=== PATIENT | female | born 1960 | race African-American/Black ===

== ENCOUNTER → 2019-05-30 | Outpatient (CLI) | payer OTHER ==
[~2019-05-30] MED LIST: ALLEGRA-D 24 H1 EACH PO; ASA81BEC PO; CARAFATE 1 GM TA1 GM PO; CELEBREX 200 M200 M1 PO; COD LIVER OIL1 EAC4 PO; COLACE100 MG PO; FLONASE 0.05%50 MCG NARES; FOLIC ACID1 MG PO; FUROSEMIDE 20 M20 MG PO; GARLIC1 EACH PO; INVOKANA300 MG PO; IRON325 M1 PO; KLOR-CON 10 ER10 MEQ PO; LANTUS SUBQ; LYRICA150 MG PO; METHOTREXATE 22.5 M1 PO; NORVASC10 MG PO; NOVOLOG100 UNIT/M SUBQ; PLAQUENIL200 MG PO; POTASSIUM20 PO; PRAVACHOL40 MG PO; PROAIR HFA8.5 GM INH; REMICADE 1100 MG/VIA IV; SYMBICORT160 MCG/4. INH; VICODIN 5-3001 EACH PO; ZESTRIL20 MG PO
== END ==
LOC: MRI 11:01 → EDSTATUS 11:19 → MRI 12:17
DX: M47.26 Other spondylosis with radiculopathy, lumbar region (principal); M43.16 Spondylolisthesis, lumbar region; M51.16 Intervertebral disc disorders with radiculopathy, lumbar region; M48.062 Spinal stenosis, lumbar region with neurogenic claudication

== ENCOUNTER → 2019-06-16 | Outpatient (CLI) | payer OTHER ==
[~2019-06-16] VITALS: Ht 152.4 cm; Wt 132.4 kg
[2019-06-16 10:46] VITALS: BP 146/85
--- NOTE | 2019-06-30 08:25 | HPC ---
[facility] [address] [place] [address] PAIN MANAGEMENT CONSULTATION Name: ANU WEEMS Room #: REG SARTHAK ClementRyderPennyRyder#: [id number] Admission: 06/16/19 Attend Phys: Theron Pressley MD Discharge: Date of : 60 Report #: [id number] THIS REPORT FOR: //name// CC: FAM xiomara Pressley DATE OF SERVICE: 06/16/2019 HISTORY: The patient is a 59-year-old female who has been referred to the pain clinic for evaluation of back pain. She has a history of back pain dating back greater than 20 years. She underwent an epidural steroid injection about 15 years ago and noted some improvement. She has been experiencing pain in the lower portion of her back that is in the area near the center of her back. It involves both sides. Notes that activities of daily living exacerbate her discomfort. Notes that her pain is worse when she sits for too long, stands for too long, walks for a prolonged period of time. Notes that when getting out of bed, she feels as though she is "paralyzed in the morning." She has undergone physical therapy and found that this has been helpful. Use of nonsteroidal anti-inflammatory medications provide some benefit. She has used muscle relaxants. Biofreeze has been helpful. She has used Vicodin. She describes her discomfort as steady, shooting, aching, sharp and tender. Rates it as a 10/10 today. She has a history of rheumatological problems. She has undergone treatment with Remicade. Has used steroids. States that she has been told that she might have a slipped disk. ALLERGIES: SULFADIAZINE. CURRENT MEDICATIONS: Aspirin 81 mg, garlic 1250 mg, cod liver oil, Sujata-D, Lyrica 150 mg b.i.d., Symbicort 160/4.5 two puffs b.i.d., Remicade infusions 100 mg q. 8 weeks, K-Dur 20 mEq, iron supplementation 325 mg, stool softener 100 mg, Albuterol 2 puffs, pravastatin 40 mg, Vicodin 5/500 mg q. 6 hours p.r.n., Norvasc 10 mg, methotrexate 2.5 mg once weekly, Lasix 20 mg b.i.d., folic acid 1 mg, potassium 10 mEq b.i.d., sucralfate, lisinopril 20 mg, Celebrex 200 mg b.i.d., Lantus 100 units, 46 units subcutaneous at bedtime, Flonase, NovoLog sliding scale, Invokana 300 mg, Plaquenil 200 mg. PAST MEDICAL HISTORY: Diabetes, hypertension, joint disease/arthritis. PAST SURGICAL HISTORY: Partial hysterectomy in 1995, right knee scope 2005, hemorrhoidectomy in 1988. SOCIAL HISTORY: The patient is disabled, has not worked since 2005. She is receiving disability benefits. REVIEW OF SYSTEMS: The patient wears glasses, chronic sinus problems, shortness [address] [address] PAIN MANAGEMENT CONSULTATION Name: ANU WEEMS Room #: REG LUDAZaria Petit#: [id number] Admission: 06/16/19 Attend Phys: Theron Pressley MD Discharge: Date of : 60 Report #: [id number] of breath while lying flat or walking, asthma, hot and cold intolerance. LABORATORY DATA: 1. MRI of the lumbar spine dated 05/30/2019, L4-L5 broad-based posterior disk bulge, bilateral facet hypertrophy and ligamentum flavum hypertrophy resulting in mild central canal stenosis and mild bilateral neural foraminal narrowing. 2. L5-S1 bilateral facet hypertrophy, no significant central canal stenosis or neural foraminal narrowing. 3. Degenerative changes are noted. PAIN CLINIC ASSESSMENT AND PQRS: 1. Height 5 feet 0 inches, weight 291 pounds, BMI 57.0. 2. Osteoarthritis. The patient has had scoping of her right knee. 3. Rheumatoid arthritis. The patient is being followed by her stoper and receiving infusions. 4. Vital Signs: Blood pressure 146/85, pulse 100, respiratory rate 18, room air saturation is 99%. 5. Pain intensity 10/10. 6. Fall history: The patient has not fallen in the last 3 months. 7. Blood thinner. The patient is not on a blood thinning medication. 8. Hypertension. The patient is being treated for hypertension. 9. Opioid medications. The patient receives medications from one source, the patient with low probability for opioid use. 10. Pain impact score 54/70. 11. Alcohol. The patient denies more than occasional alcohol use. 12. Tobacco: The patient denies use of tobacco. PHYSICAL EXAMINATION: GENERAL: The patient is a well-developed, well-nourished black female. She is obese. She is alert and oriented x 3. Her affect is appropriate. Speech is fluent. HEENT: Normocephalic, atraumatic. Extraocular eye muscles intact. Sclerae nonicteric. Mucous membranes are moist. NECK: Without adenopathy or JVD. EXTREMITIES: Upper extremity muscle strength judged to be 5/5 for the major muscle groups in the upper extremity. HEART: Regular rate. ABDOMEN: Protuberant. Bowel sounds present. The patient without adenopathy or JVD. MUSCULOSKELETAL: Without significant scoliosis, kyphosis or lordosis. The patient complains of pain and discomfort in the low back area with pain radiating down into the low back and buttocks area in the L5-S1 dermatomal distribution as well as some pain and discomfort in the L4-L5 dermatomal distribution. Straight leg raise is positive. IMPRESSION: [facility] [address] [place] [address] PAIN MANAGEMENT CONSULTATION Name: ANU WEEMS [facility] [id number] Admission: 06/16/19 Attend Phys: Theron Pressley MD Discharge: Date of : 60 Report #: [id number] 1. Lumbar radiculopathy, L5-S1 dermatomal distribution with numbness, tingling and sensory changes in the posterior portion of the buttocks with radiation down into in the L5-S1 dermatomal distribution bilaterally. 2. Diabetes. 3. Hypertension. 4. Joint disease/arthritis. RECOMMENDATIONS: We discussed treatment options with the patient. At this juncture, we will consider an epidural steroid injection. The patient did have epidural steroid injections in the past. She found that they were beneficial. She will return to the Pain Clinic, at which time she will then undergo an epidural steroid injection. Risks and benefits of the procedure were discussed. The patient's MRI was reviewed with her in detail. A review of the MRI using the images on the screen were discussed. A model was used to indicate the area of probable pathology. The patient states that she understands. We would like to thank you for letting us participate in her care. We hope she will continue to improve after the epidural injections. <ELECTRONICALLY SIGNED> By: Theron Pressley MD 06/30/19 0825 [id number] Theron Pressley MD /[facility]
== END ==
LOC: PAIN 07:09
DX: M54.17 Radiculopathy, lumbosacral region (principal); E11.9 Type 2 diabetes mellitus without complications; I10 Essential (primary) hypertension; M19.90 Unspecified osteoarthritis, unspecified site

== ENCOUNTER → 2019-10-25 | Outpatient (CLI) | payer OTHER ==
[~2019-10-25] VITALS: Ht 152.4 cm; Wt 129.3 kg
[~2019-10-25] MED LIST changes: +NORCO 10-325 T1 EACH PO
[2019-10-25 10:55] VITALS: BP 150/77
--- NOTE | 2019-10-25 11:11 | NUR ---
Pain Clinic Assessment: 1. History of Osteoarthritis: BACK BILAT KNEES History of Rheumatoid Arthritis: HANDS SHOULDERS KNEES 2. Height: 5 ft. 0 in. 152.4 cm. Weight: 285.0 lb. oz. 129.276 kg. Patient's BMI: 55.7 3. Vital Signs: BP: 150/77 Pulse: 97 Resp: 18 Temp: 02 Sat: 100 ECG Mon: 4. Pain Intensity: 10 5. Fall Risk: Dizziness: N Needs help standing or walking: N Fallen in the last 3 months: N Fall risk comments: 6. Patient on Blood Thinner: None 7. History of Hypertension: Y 8. Opioid Therapy greater than 6 weeks: N Opiate Contract Signed: 9. Risk Assessment Tool Provided: LOW RISK 0/3 10. Functional Assessment Tool: 54/70 11. Recreational Drug Use: Never Drug Type: Tobacco Use: Never Smoker Tobacco Type: Amount or Packs/day: How Many Years: Alcohol Use: No Frequency: Quant:
--- NOTE | 2019-10-30 22:53 | HPC ---
[facility] [place] [address] PAIN MANAGEMENT CONSULTATION Name: ANU WEEMS Room #: REG SARTHAK Petit#: [id number] Admission: 10/25/19 Attend Phys: Theron Pressley MD Discharge: Date of : 60 Report #: [id number] THIS REPORT FOR: cc: SARAH - Family physician unknown SARAH - Family physician unknown Theron Pressley MD ~ CC: SARAH Pressley DATE OF SERVICE: 10/25/2019 CHIEF COMPLAINT: Pain in the back and down in the right leg. Left leg is worse. HISTORY: The patient is a 59-year-old female who has been seen in the Pain Clinic in the past because of lumbar radicular pain. She continues to have pain, which has been quite debilitating. Rates her pain as a 10/10 today. It involves her low back. It radiates down the left buttocks area. She did note pain that radiates down into the posterior portion of her leg with numbness and tingling. Denies any new bowel or bladder problems. Overall, she feels that the pain is problematic. She was taking Celebrex. She had noted an increase in the creatinine level. She states that her primary physician asked that she stop taking this medication on a regular basis. She has noted an increase in her pain since she has had to stop the nonsteroidal anti-inflammatory medication. Does have a history of diabetes. Overall, she feels her blood sugars are reasonably stable. She has undergone Remicade treatment. She has been told that she has a slipped disk. She has returned today to the Pain Clinic with the thought of undergoing an epidural steroid injection and hopes that the pain will improve after the injection. ALLERGIES: SULFADIAZINE. CURRENT MEDICATIONS: Aspirin 81 mg, garlic 250 mg, cod liver oil, Sujata-D, Lyrica 150 mg b.i.d., Symbicort 160/4.5 two puffs, Remicade infusions 100 mg q. 8 weeks, K-Dur 20 mEq, iron supplements 325 mg, stool softener 100 mg, albuterol puffs 2, pravastatin 40 mg, Vicodin 5/500, Norvasc 10 mg, methotrexate 2.5 mg once weekly, Lasix 20 mg b.i.d., folic acid 1 mg, potassium 10 mEq b.i.d., sucralfate, lisinopril 20 mg, Lantus 100 units subQ as directed, Flonase, NovoLog sliding scale, Invokana 300 mg, Plaquenil 200 mg. The patient has stopped taking Celebrex. PAIN CLINIC ASSESSMENT/PQRS: 1. History of osteoarthritis and back pain. Has bilateral knee pain. 2. History of rheumatoid arthritis involving the hand, shoulder and knees. 3. Height 5 feet 0, weight 285 pounds, BMI is 55. 4. Vital signs: Blood pressure 150/77, pulse 97, respiratory rate 18, [place] [address] PAIN MANAGEMENT CONSULTATION Name: ANU WEEMS Room #: REG Zaria Marques.#: [id number] Admission: 10/25/19 Attend Phys: Theron Pressley MD Discharge: Date of : 60 Report #: [id number] air saturation 100%. 5. Pain intensity, 06/01. 6. Fall history: The patient has not fallen in the last 3 months. 7. Blood thinner. The patient is not on a blood thinning medication. 8. Hypertension. The patient is being treated for hypertension. 9. Opioids greater than 6 weeks. The patient's hydrocodone is provided by her primary physician. 10. Functional assessment tool, low for opioid use. 11. Functional assessment tool, 54/70. 12. Recreational drug use: The patient denies. 13. Tobacco: The patient has never smoked. 14. Alcohol. The patient denies use of alcoholic beverages. PHYSICAL EXAMINATION: GENERAL: The patient is a well-developed, well-nourished black female, appears her stated age. She is obese. Her affect is appropriate. Speech is fluent. HEENT: Normocephalic, atraumatic. Extraocular eye muscles intact. Sclerae nonicteric. Mucous membranes are moist. NECK: Without adenopathy or JVD. EXTREMITIES: Upper extremity muscle strength judged to be 5/5 for the major muscle groups in the upper extremity. HEART: Regular. ABDOMEN: Protuberant. Bowel sounds present. The patient is without adenopathy or JVD. MUSCULOSKELETAL: The patient without significant scoliosis, kyphosis or lordosis. The patient has pain and discomfort in lower portion of her back. Has pain that radiates down in the L5-S1 dermatomal distribution in the left and right leg. The pain is more problematic on the left. It involves the buttocks and down into the posterior portion of her leg. Positive straight leg raise. IMPRESSION: 1. Lumbar radiculopathy at L5-S1 dermatomal distribution with numbness, tingling and sensory changes. 2. Diabetes. 3. Hypertension. 4. Joint disease/arthritis. 5. Rheumatoid arthritis. RECOMMENDATIONS: We discussed treatment options with the patient. Risks and benefits of an epidural steroid injection were discussed. Possible complications of the procedure were reviewed. They include but are not limited to infection, worsening pain, no improvement in pain, nerve damage, spinal headache and the patient elects to proceed. PROCEDURE NOTE: The patient was taken to the procedure area. She was then assisted in getting on the examination table. Her back was sterilely prepped [facility] [address] [place] [address] PAIN MANAGEMENT CONSULTATION Name: ANU WEEMS Room #: REG [facility].#: [id number] Admission: 10/25/19 Attend Phys: Theron Pressley MD Discharge: Date of : 60 Report #: [id number] with a Betadine solution. Fluoroscopy using anterior, posterior as well as lateral viewing were implemented. A 0.25% bupivacaine was infiltrated to numb the pathway. A 17-gauge Tuohy with loss of resistance technique was then used in a midline approach at L5-S1. This was directed to the left side. There was no CSF, heme or paresthesia. Total of 80 mg Depo-Medrol, 40 mg triamcinolone and 2 mL of 0.25% bupivacaine was injected. The patient tolerated the procedure well. We reminded the patient that her blood sugars might increase as a result of the use of steroids. She will monitor blood sugars and treated with insulin as needed. We would like to thank you for letting us participate in her care. We hope she continues to improve. <ELECTRONICALLY SIGNED> By: Theron Pressley MD 10/30/19 2253 [id number] Theron Pressley MD /nt
== END | disposition home or self-care (01) ==
LOC: PAIN 06:53
DX: M54.16 Radiculopathy, lumbar region (principal); G89.29 Other chronic pain; I10 Essential (primary) hypertension; E11.9 Type 2 diabetes mellitus without complications; M19.90 Unspecified osteoarthritis, unspecified site; M06.9 Rheumatoid arthritis, unspecified; Z98.890 Other specified postprocedural states; Z79.899 Other long term (current) drug therapy; Z79.891 Long term (current) use of opiate analgesic; Z88.2 Allergy status to sulfonamides; Z79.82 Long term (current) use of aspirin

== ENCOUNTER → 2019-12-01 | Outpatient (CLI) | payer OTHER ==
[~2019-12-01] VITALS: Ht 154.9 cm; Wt 131.5 kg
[~2019-12-01] MED LIST changes: +FLEXERIL PO; +LYRICA 75 MG CA75 MG PO
[2019-12-01 10:21] VITALS: BP 136/79
--- NOTE | 2019-12-01 10:28 | NUR ---
Pain Clinic Assessment: 1. History of Osteoarthritis: BACK BILAT KNEES History of Rheumatoid Arthritis: HANDS SHOULDERS KNEES 2. Height: 5 ft. 1 in. 154.9 cm. Weight: 290.0 lb. oz. 131.544 kg. Patient's BMI: 54.8 3. Vital Signs: BP: 136/79 Pulse: 106 Resp: 18 Temp: 02 Sat: 98 ECG Mon: 4. Pain Intensity: 10 5. Fall Risk: Dizziness: N Needs help standing or walking: N Fallen in the last 3 months: N Fall risk comments: 6. Patient on Blood Thinner: None 7. History of Hypertension: Y 8. Opioid Therapy greater than 6 weeks: N Opiate Contract Signed: 9. Risk Assessment Tool Provided: LOW RISK 0/3 10. Functional Assessment Tool: 54/70 11. Recreational Drug Use: Never Drug Type: Tobacco Use: Never Smoker Tobacco Type: Amount or Packs/day: How Many Years: Alcohol Use: No Frequency: Quant:
--- NOTE | 2019-12-20 08:03 | HPC ---
[facility] [place] [place] [address] PAIN MANAGEMENT CONSULTATION Name: ANU WEEMS Room #: REG SARTHAK Petit#: [id number] Admission: 12/01/19 Attend Phys: Theron Pressley MD Discharge: Date of : 60 Report #: [id number] THIS REPORT FOR: cc: SARAH - Family physician unknown FAM - Family physician unknown Theron Pressley MD ~ CC: SARAH Pressley DATE OF SERVICE: 12/01/2019 The patient does not have a family practitioner. CHIEF COMPLAINT: "The epidural helped for some time, but now my pain has returned." HISTORY: The patient is a 59-year-old female who has been seen in the pain clinic because of lumbar radiculopathy. She continues to have pain that radiates down into her lower back and involves her leg. It involves both sides. It radiates down into her buttocks and the left calf. She has been using a vibrator and massage to help decrease her discomfort. She is being seen by her yarrow gatherer. She receives her pain medications from him. She saw him yesterday. She has returned today with hope of undergoing an epidural steroid injection. No new bowel or bladder problems. She is taking less nonsteroidal anti-inflammatory medications because of change in her creatinine level. She does have a history of diabetes. States that her blood sugars are usually stable. She continues to use Remicade treatments. She has been told that she has a slipped disk. The last epidural steroid injection was beneficial. She did not notice a significant change in her blood sugars. ALLERGIES: SULFADIAZINE. CURRENT MEDICATIONS: Aspirin 81 mg, garlic 250 mg, cod liver oil, Sujata-D, Lyrica 150 mg b.i.d., Symbicort 160/4.5 two puffs, Remicade infusions q. 8 weeks, K-Dur 20 mEq, iron supplements 325 mg, stool softener 100 mg, Albuterol 2 puffs, pravastatin 40 mg, Vicodin 5/500 mg, Norvasc 10 mg, methotrexate 2.5 mg weekly, Lasix 20 mg b.i.d., folic acid 1 mg, potassium 10 mEq b.i.d., sucralfate, lisinopril 20 mg, Lantus 100 units given subcutaneous as directed, Flonase, NovoLog sliding scale, Invokana 300 mg, Plaquenil 200 mg. PAIN CLINIC ASSESSMENT/PQRS: 1. History of osteoarthritis in her back. The patient has bilateral knee pain. 2. The patient is being treated for rheumatoid arthritis involving her hands, knees and shoulders. 3. Height 5 feet 0, weight 290 pounds, BMI is 54.8. 4. Vital signs: Blood pressure 136/79, pulse 106, respiratory rate 18, [place] [address] PAIN MANAGEMENT CONSULTATION Name: ANU WEEMS Room #: REG [facility]#: [id number] Admission: 12/01/19 Attend Phys: Theron Pressley MD Discharge: Date of : 60 Report #: [id number] air saturation 98%. 5. Pain intensity 10/10. 6. Fall history: The patient has not fallen in the last 3 months. 7. Blood thinner. The patient is not on a blood thinning medication. 8. Hypertension. The patient is being treated for hypertension. 9. Opioids greater than 6 weeks. The patient receives medication from her primary. 10. Risk assessment tool, low for opioid use. 11. Functional assessment tool 54/70. 12. Recreational drug use. The patient denies. 13. Tobacco: The patient has never smoked. 14. Alcohol. The patient denies frequent use of alcoholic beverages. PHYSICAL EXAMINATION: GENERAL: The patient is a well-developed, well-nourished black female, appears her stated age. She is alert and oriented x 3. She is obese. Her affect is appropriate. Speech is fluent. HEENT: Normocephalic, atraumatic. Extraocular eye muscles intact. Sclerae nonicteric. Mucous membranes are moist. NECK: Without adenopathy or JVD. EXTREMITIES: Upper extremity muscle strength judged to be 5/5 for the major muscle groups in the upper extremity. HEART: Regular rate. ABDOMEN: Protuberant. Bowel sounds present. MUSCULOSKELETAL: The patient without significant scoliosis, kyphosis or lordosis. The patient does have pain and discomfort in the lower portion of her back. The pain is radiating down the L5-S1 dermatomal distribution on the left as well as some pain down into her right leg. Pain and discomfort in the buttocks area as well. The patient has positive straight leg raise on the left. IMPRESSION: 1. Lumbar radiculopathy L5-S1 dermatomal distribution with numbness and tingling with sensory changes. 2. Diabetes. 3. Hypertension. 4. Joint disease/arthritis. 5. Rheumatoid arthritis. RECOMMENDATIONS: We discussed treatment options with the patient. At this juncture, we have explained to the patient that hospitals have requested that we do not proceed with epidural steroid injections, which could decrease the PPE. The coronavirus is still problematic and we are awaiting the okay to start and proceed with epidural steroid injections. We have also discussed with the patient the problems with injections. They can decrease one's immunity/ability to defend against contact with the coronavirus. We will have the patient return when it is felt that it is reasonable to proceed with another [facility] [address] [place] [address] PAIN MANAGEMENT CONSULTATION Name: ANU WEEMS Room #: REG [facility] Shelli.#: [id number] Admission: 12/01/19 Attend Phys: Theron Pressley MD Discharge: Date of : 60 Report #: [id number] epidural steroid injection in this series. We would like to thank you for letting us participate in her care. We hope she continues to improve. <ELECTRONICALLY SIGNED> By: Theron Pressley MD 12/20/19 0803 [id number] Theron Pressley MD /nt
== END ==
LOC: PAIN 11-22 12:12
DX: M54.17 Radiculopathy, lumbosacral region (principal); M54.16 Radiculopathy, lumbar region; M54.5 Low back pain; E11.9 Type 2 diabetes mellitus without complications; I10 Essential (primary) hypertension; M19.90 Unspecified osteoarthritis, unspecified site; M06.9 Rheumatoid arthritis, unspecified

== ENCOUNTER → 2020-01-03 | Outpatient (CLI) | payer OTHER ==
[~2020-01-03] VITALS: Ht 152.4 cm; Wt 128.6 kg
[~2020-01-03] MED LIST changes: +AMITRIPTYLINE H10 M1 PO
[2020-01-03 10:49] VITALS: BP 150/80
--- NOTE | 2020-01-03 10:52 | NUR ---
Pain Clinic Assessment: 1. History of Osteoarthritis: BACK BILAT KNEES History of Rheumatoid Arthritis: HANDS SHOULDERS KNEES 2. Height: 5 ft. 0 in. 152.4 cm. Weight: 283.6 lb. oz. 128.640 kg. Patient's BMI: 55.4 3. Vital Signs: BP: 150/80 Pulse: 108 Resp: 18 Temp: 02 Sat: 100 ECG Mon: 4. Pain Intensity: 9 5. Fall Risk: Dizziness: N Needs help standing or walking: N Fallen in the last 3 months: N Fall risk comments: 6. Patient on Blood Thinner: None 7. History of Hypertension: Y 8. Opioid Therapy greater than 6 weeks: N Opiate Contract Signed: 9. Risk Assessment Tool Provided: LOW RISK 0/3 10. Functional Assessment Tool: 54/70 11. Recreational Drug Use: Never Drug Type: Tobacco Use: Never Smoker Tobacco Type: Amount or Packs/day: How Many Years: Alcohol Use: No Frequency: Quant:
--- NOTE | 2020-01-16 22:13 | HPC ---
[facility] [place] [address] PAIN MANAGEMENT CONSULTATION Name: ANU WEEMS Room #: REG SARTHAK Petit#: [id number] Admission: 01/03/20 Attend Phys: Theron Pressley MD Discharge: Date of : 60 Report #: [id number] THIS REPORT FOR: cc: SARAH - Family physician unknown SARAH - Family physician unknown Theron Pressley MD ~ CC: SARAH Pressley DATE OF SERVICE: 01/03/2020 CHIEF COMPLAINT: Continued back pain. HISTORY: The patient is a 59-year-old female who has been seen in the pain clinic because of lumbar radiculopathy. She has pain that radiates down to the lower portion of her back and involves her leg. Both legs are involved. Pain radiates down into the buttocks. Her left calf has been problematic. She has tried massage as well as other methods to try and decrease her pain. Pain continues to be problematic. She is being followed by a industrial safety and health specialist. She has been taking less nonsteroidal anti-inflammatory medications. Her creatinine level has been elevated. She does have a history of diabetes. Her blood sugars are usually are stable at this juncture. She has to use Remicade treatments. She has been told that she has a slipped disk. Her epidural steroid injection in the past has been helpful. She did not notice a significant bump in her blood sugars. ALLERGIES: SULFADIAZINE. CURRENT MEDICATIONS: Aspirin 81 mg, garlic 250 mg, cod liver oil, Sujata-D, Lyrica 150 mg b.i.d., Symbicort 160/4.5, Remicade infusions every 8 weeks, K-Dur 20 mEq, iron supplements 325 mg, stool softeners 100 mg, Albuterol 2 puffs, pravastatin 40 mg, Vicodin 5/500, Norvasc 10 mg, methotrexate 2.5 mg weekly, Lasix 20 mg b.i.d., folic acid 1 mg, potassium 10 mEq b.i.d., sucralfate, lisinopril 20 mg, Lantus 100 units subcutaneous as directed, Flonase, NovoLog sliding scale, Invokana 300 mg, and Plaquenil 200 mg. PAIN CLINIC ASSESSMENT AND PQRS: 1. The patient has history of osteoarthritis in her back. She has bilateral knee pain. She is being treated by a industrial safety and health specialist for pain involving her hands, knees, and shoulders. 2. Height 5 feet, weight 291 pounds, BMI is 54.8. 3. Vital signs: Blood pressure 150/80, heart rate 108, respiratory rate 18, room air saturation 100%. 4. Pain intensity is 9/10. 5. Fall history: The patient has not fallen in the last 3 months. 6. Blood thinner. The patient is not [place] [address] PAIN MANAGEMENT CONSULTATION Name: ANU WEEMS Room #: REG [facility]#: [id number] Admission: 01/03/20 Attend Phys: Theron Pressley MD Discharge: Date of : 60 Report #: [id number] 7. Hypertension. The patient is being treated for hypertension. 8. Opioids. The patient received medication from her primary. 9. Risk assessment tool, low for opioid use. 10. Functional assessment tool 54/70. 11. Recreational drug use. The patient denies. 12. Tobacco: The patient has never smoked. 13. Alcohol. The patient denies frequent use of alcoholic beverages. PHYSICAL EXAMINATION: GENERAL: The patient is a well-developed, well-nourished black female, appears her stated age. She is obese. Her affect is appropriate. Speech is fluent. HEENT: Normocephalic, atraumatic. Extraocular eye muscles intact. Sclerae nonicteric. Mucous membranes are moist. NECK: Without adenopathy or JVD. EXTREMITIES: Upper extremity muscle strength judged to be 5/5 for the major muscle groups in the upper extremity. HEART: Regular heart rate. ABDOMEN: Protuberant. Bowel sounds present. MUSCULOSKELETAL: Lower extremity, the patient has some pain and discomfort in the L5-S1 dermatomal distribution with pain radiating down to her left as well as her right leg. She notes some discomfort in the buttocks areas. Positive straight leg raise on the left. The patient without significant scoliosis, kyphosis, or lordosis. IMPRESSION: 1. Lumbar radiculopathy with L5-S1 dermatomal distribution with numbness and tingling with sensory changes. 2. Diabetes. 3. Hypertension. 4. Degenerative joint disease. 5. Rheumatoid arthritis. RECOMMENDATIONS: We discussed treatment options with the patient. At this juncture, the patient continues to have pain, which is quite problematic. We have discussed the risks and benefits they include infection, worsening pain, no improvement in pain, nerve damage, bleeding, spinal headache. The patient elects to proceed. We discussed the added problem with COVID-19 at this juncture. The patient has a number of comorbidities. She does have diabetes. Her weight is at an extreme. She has been treated with immunosuppressive medications for her rheumatoid arthritis. I think at this juncture, the risks would be quite high to undergo an injection at this point, I think we will try the most conservative approach. The patient will try to use amitriptyline to help decrease her pain as well as improve sleep. She will try 10 mg at bedtime. She will increase this to 2 at bedtime if she continues to be problematic. Again, after the patient has been immunized against COVID-19, I think it would be reasonable to proceed, but given the significant number of comorbidities I [facility] [address] [place] [address] PAIN MANAGEMENT CONSULTATION Name: ANU WEEMS Room #: REG [facility]#: [id number] Admission: 01/03/20 Attend Phys: Theron Pressley MD Discharge: Date of : 60 Report #: [id number] think that the patient will have a difficult time should she become infected during the time of the pandemic. We would like to thank you for letting us participate in her care. We hope she continues to improve. <ELECTRONICALLY SIGNED> By: Theron Pressley MD 01/16/20 [id number] Theron Pressley MD /nt
== END ==
LOC: PAIN 12-27 09:22
DX: M54.17 Radiculopathy, lumbosacral region (principal); E11.9 Type 2 diabetes mellitus without complications; I10 Essential (primary) hypertension; M19.90 Unspecified osteoarthritis, unspecified site; M06.9 Rheumatoid arthritis, unspecified; Z88.8 Allergy status to other drugs, medicaments and biological substances; Z79.899 Other long term (current) drug therapy

== ENCOUNTER → 2020-03-20 | Outpatient (CLI) | payer OTHER ==
[~2020-03-20] VITALS: Ht 152.4 cm; Wt 128.9 kg
[~2020-03-20] MED LIST changes: +TRAMADOL 50 MG50 MG PO
[2020-03-20 10:34] VITALS: BP 155/87
--- NOTE | 2020-03-20 10:57 | NUR ---
ALERT - Marquise Score <= 18: Add Problem PRESSURE ULCER RISK to Patient's Care Plan
--- NOTE | 2020-03-20 11:02 | NUR ---
Pain Clinic Assessment: 1. History of Osteoarthritis: BACK BILAT KNEES History of Rheumatoid Arthritis: HANDS SHOULDERS KNEES 2. Height: 5 ft. 0 in. 152.4 cm. Weight: 284.2 lb. oz. 128.913 kg. Patient's BMI: 55.5 3. Vital Signs: BP: 155/87 Pulse: 102 Resp: 16 Temp: 02 Sat: 100 ECG Mon: 4. Pain Intensity: 10 5. Fall Risk: Dizziness: N Needs help standing or walking: N Fallen in the last 3 months: N Fall risk comments: 6. Patient on Blood Thinner: None 7. History of Hypertension: Y 8. Opioid Therapy greater than 6 weeks: N Opiate Contract Signed: 9. Risk Assessment Tool Provided: LOW RISK 0 10. Functional Assessment Tool: 54/70 11. Recreational Drug Use: Never Drug Type: Tobacco Use: Never Smoker Tobacco Type: Amount or Packs/day: How Many Years: Alcohol Use: No Frequency: Quant:
--- NOTE | 2020-03-28 23:54 | HPC ---
[facility] [place] [address] [place] [address] PAIN MANAGEMENT CONSULTATION Name: ANU WEEMS Room #: REG SARTHAK Petit#: [id number] Admission: 03/20/20 Attend Phys: Theron Pressley MD Discharge: Date of : 60 Report #: [id number] THIS REPORT FOR: cc: SARAH - Family physician unknown FAM - Family physician unknown Theron Pressley MD ~ CC: SARAH Pressley DATE OF SERVICE: 03/20/2020 CHIEF COMPLAINT: Low back pain. HISTORY: The patient is a 60-year-old female who has been followed in the pain clinic because of lumbar radiculopathy. The patient continues to have pain that radiates down to the lower portion of her back. It involves both legs. It radiates down into her buttocks. She rates the pain today as a 6/10. She also has pain and discomfort in both knees. She rates the intensity of the knee as a 10. She has used Biofreeze on her knees to help with the pain and discomfort. Also, notes shooting, aching, sharp tenderness. Standing, walking, getting out of bed can be problematic. ALLERGIES: SULFASALAZINE. CURRENT MEDICATIONS: Aspirin 81 mg, garlic 250 mg, cod liver oil, Sujata-D, Lyrica 150 mg b.i.d., Symbicort 160/4.5, Remicade infusions every 8 weeks, K-Dur 20 mEq, iron supplements 325 mg, stool softeners 100 mg, Albuterol 2 puffs, pravastatin 40 mg, Vicodin 5/500, Norvasc 10 mg, methotrexate 2.5 mg weekly, Lasix 20 mg b.i.d., folic acid 1 mg, potassium 10 mEq b.i.d., sucralfate, lisinopril 20 mg, Lantus 100 units subcutaneous as directed, Flonase, NovoLog sliding scale, Invokana 300 mg, and Plaquenil 200 mg. PAIN CLINIC ASSESSMENT AND PQRS: 1. The patient has a history of osteoarthritis in her back. She has bilateral knee pain. She is being treated by a fly winder for continued pain in her hands, knees, and shoulders. 2. Height 5 feet 0, weight 284 pounds, BMI is 55.5. 3. Vital Signs: Blood pressure 155/87, respiratory rate 16, room air saturations 100%. 4. Pain intensity 10/10. 5. Fall risk. The patient has not fallen since we saw her last. 6. Blood thinner. The patient is not on a blood thinning medication. 7. Hypertension. The patient is being treated for hypertension. 8. Opioids greater than 6 weeks. The patient receives medication from the pain clinic. 9. Risk assessment tool, [place] [address] PAIN MANAGEMENT CONSULTATION Name: ANU WEEMS Room #: REG [facility]#: [id number] Admission: 03/20/20 Attend Phys: Theron Pressley MD Discharge: Date of : 60 Report #: [id number] 10. Functional assessment tool 54/70. 11. Recreational drug use. The patient denies. 12. Tobacco: The patient has never smoked. 13. Alcohol. The patient denies use of alcoholic beverages. PHYSICAL EXAMINATION: GENERAL: The patient is a well-developed, well-nourished black female. She is obese. She appears her stated age. She is alert and oriented x 3. Speech is fluent. HEENT: Normocephalic, atraumatic. Extraocular eye muscles intact. Sclerae nonicteric. Mucous membranes moist. The patient has a mask on. NECK: Without adenopathy or JVD. HEART: Regular rate. ABDOMEN: Protuberant. Bowel sounds present. LUNGS: Generally clear. MUSCULOSKELETAL: Upper extremity muscle strength judged to be 5/5 for the major muscle groups in the upper extremity. Lower extremity muscle strength judged to be 5-/5. The patient has pain in the L5-S1 dermatomal distribution with pain down the right and left leg. Positive straight leg raise. The patient without significant scoliosis, kyphosis or lordosis. IMPRESSION: 1. Lumbar radiculopathy in the L5-S1 dermatomal distribution with numbness and tingling with sensory changes. 2. Diabetes. 3. Hypertension. 4. Degenerative joint disease. 5. Rheumatoid arthritis. RECOMMENDATIONS: We discussed treatment options with the patient. At this juncture, we will continue with her medications. She will continue with Lyrica 75 mg b.i.d. She will also try tramadol 50 mg p.o. b.i.d. The patient will continue with Elavil and amitriptyline. She will increase this from 10 mg at bedtime to 20 mg at bedtime. A script for her medications have been provided. We would like to thank you for letting us participate in her care. After the covid19 pandemic we may consider possibility of an epidural steroid injection. <ELECTRONICALLY SIGNED> By: Theron Pressley MD 03/28/20 [id number] Theron Pressley MD /nt
== END ==
LOC: PAIN 01-31 06:42
PROVIDERS: ATTEND Anesthesiology Pain Medicine
DX: M54.17 Radiculopathy, lumbosacral region (principal); E11.9 Type 2 diabetes mellitus without complications; I10 Essential (primary) hypertension; M19.90 Unspecified osteoarthritis, unspecified site; M06.9 Rheumatoid arthritis, unspecified; F11.20 Opioid dependence, uncomplicated; Z88.8 Allergy status to other drugs, medicaments and biological substances; Z79.899 Other long term (current) drug therapy

== ENCOUNTER → 2021-08-06 | Outpatient (CLI) | payer OTHER ==
[~2021-08-06] VITALS: Ht 152.4 cm; Wt 128.7 kg
[~2021-08-06] MED LIST changes: +AMITRIPTYLINE H25 M3 PO; +METFORMIN HCL500 M3 PO; +NEXIUM2.5 MG PO; +OZEMPIC0.25 MG/0. SUBQ
[2021-08-06 10:58] VITALS: BP 136/80
--- NOTE | 2021-08-06 11:26 | NUR ---
Pain Clinic Assessment: 1. History of Osteoarthritis: BACK BILAT KNEES History of Rheumatoid Arthritis: HANDS SHOULDERS KNEES 2. Height: 5 ft. 0 in. 152.4 cm. Weight: 283.8 lb. oz. 128.731 kg. Patient's BMI: 55.4 3. Vital Signs: BP: 136/80 Pulse: 113 Resp: 20 Temp: 02 Sat: 100 ECG Mon: 4. Pain Intensity: 9 TO 10 5. Fall Risk: Dizziness: N Needs help standing or walking: N Fallen in the last 3 months: N Fall risk comments: 6. Patient on Blood Thinner: None 7. History of Hypertension: Y 8. Opioid Therapy greater than 6 weeks: N Opiate Contract Signed: 9. Risk Assessment Tool Provided: LOW RISK 0 10. Functional Assessment Tool: 54/70 11. Recreational Drug Use: Never Drug Type: Tobacco Use: Never Smoker Tobacco Type: Amount or Packs/day: How Many Years: Alcohol Use: No Frequency: Quant:
== END | disposition home or self-care (01) ==
LOC: PAIN 08:43
PROVIDERS: ATTEND Anesthesiology Pain Medicine
DX: M79.18 Myalgia, other site (principal); M54.16 Radiculopathy, lumbar region; I10 Essential (primary) hypertension; E11.9 Type 2 diabetes mellitus without complications; M19.90 Unspecified osteoarthritis, unspecified site; M06.9 Rheumatoid arthritis, unspecified; Z79.4 Long term (current) use of insulin; J45.909 Unspecified asthma, uncomplicated; Z98.890 Other specified postprocedural states; Z79.899 Other long term (current) drug therapy; Z90.711 Acquired absence of uterus with remaining cervical stump; Z88.2 Allergy status to sulfonamides